=== PATIENT | female | born 1965 | race African-American/Black ===

== ENCOUNTER 2024-04-06 18:24 | Emergency (ER) | payer MEDICAID, OTHER ==
[~2024-04-06] VITALS: Ht 162.6 cm; Wt 80.0 kg
[2024-04-06 18:25] VITALS: TEMP 98.2; O2SAT 99
[2024-04-06] MEDS: KETOROLAC 30MG/ML VIAL IV STA ×2 (19:05→21:30)
[2024-04-06] MEDS: ONDANSETRON HCL 4MG/2ML INJ IV STA ×2 (19:05→22:59)
[2024-04-06] MEDS: SODIUM CHLORIDE 0.9% 1,000 ML IV ONE ×2 (19:15→21:30)
[2024-04-06 20:14] LABS: BASOPHILS % 0.6 % (0.0-2.0); EOSINOPHILS % 0.2 % (0.0-5.0); HEMATOCRIT. 41.9 % (36.0-48.0); HEMOGLOBIN. 13.5 g/dL (12.0-16.0); LYMPHOCYTES % 8.4 % (20.0-50.0); MEAN CORPUSCULAR HEMOGLOBIN 26.8 pg (28.0-32.0); MEAN CORPUSCULAR HGB CONC 32.3 g/dL (31.0-37.0); MEAN PLATELET VOLUME 8.8 fl (7.4-10.4); MONOCYTES % 4.5 % (2.0-8.0); NEUTROPHILS % 86.3 % (40.0-76.0); PLATELET 261 x1000/uL (130-400); RED BLOOD CELL COUNT 5.04 mill/uL (4.2-5.4); RED CELL DISTRIBUTION WIDTH 14.6 % (11.6-14.6)
[2024-04-06 20:21] LABS: CARBON DIOXIDE 28 mEq/L (21-32); CHLORIDE 110 mEq/L (98-107); POTASSIUM 3.5 mEq/L (3.5-5.1); SODIUM 143 mEq/L (136-145)
[2024-04-06 20:22] LABS: CALCIUM 9.7 mg/dL (8.7-10.4)
[2024-04-06 20:26] LABS: CREATININE 0.9 mg/dL (0.6-1.0)
[2024-04-06 20:27] LABS: GLUCOSE 90 mg/dL (70-105); UREA NITROGEN BLOOD 12 mg/dL (9-23)
[2024-04-06 20:29] LABS: ALANINE AMINOTRANSFERASE 19 IU/L (10-49); ALBUMIN 3.9 g/dL (3.2-4.8); ASPARTATE AMINOTRANSFERASE 22 IU/L (<34); BILIRUBIN DIRECT 0.1 mg/dL (<=3.0); BILIRUBIN TOTAL 0.4 mg/dL (0.1-1.0); PROTEIN TOTAL 6.3 g/dL (6.0-8.3)
[2024-04-06 20:33] LABS: TROPONIN I HIGH SENSITIVITY < 4 ng/L (3.0-34)
[2024-04-06] MEDS: LEVOFLOXACIN 500MG PREMIX 100 ML IV ONE (22:59)
[2024-04-06] MEDS: MORPHINE SULFATE 4 MG/ML INJ (FOR IV/IM USE) IV STA (22:59)
[2024-04-07 00:13] VITALS: BP 121/47; PULSE 69; RESP 18; O2SAT 97
== END 2024-04-07 | disposition home or self-care (01) ==
LOC: ER 18:24
DX: R10.9 Unspecified abdominal pain (principal); I10 Essential (primary) hypertension; F41.9 Anxiety disorder, unspecified; Z88.0 Allergy status to penicillin; Z90.710 Acquired absence of both cervix and uterus; Z88.8 Allergy status to other drugs, medicaments and biological substances
CPT/HCPCS: 99285; 74176; 96365; 96361; 96375; 71045; 80076; 80048; 83690; 85025; 84484; 36415; 93005; J1956; J2405; J2270; J7030

== ENCOUNTER 2024-09-20 04:08 | Emergency (ER) | payer MEDICAID ==
[~2024-09-20] VITALS: Ht 172.7 cm; Wt 81.0 kg
[2024-09-20 04:22] VITALS: O2SAT 97
[2024-09-20 04:30] LABS: HEMATOCRIT. 37.8 % (36.0-48.0); HEMOGLOBIN. 12.1 g/dL (12.0-16.0); LYMPHOCYTES % 50.4 % (20.0-50.0); MEAN CORPUSCULAR HEMOGLOBIN 26.2 pg (28.0-32.0); MEAN CORPUSCULAR HGB CONC 31.9 g/dL (31.0-37.0); MEAN CORPUSCULAR VOLUME 81.9 fL (81.0-99.0); MONOCYTES % 5.2 % (2.0-8.0); NEUTROPHILS % 39.4 % (40.0-76.0); PLATELET 281 x1000/uL (130-400); RED BLOOD CELL COUNT 4.62 mill/uL (4.2-5.4); RED CELL DISTRIBUTION WIDTH 14.4 % (11.6-14.6); WHITE BLOOD COUNT 7.1 x1000/uL (4.5-11.0)
[2024-09-20 04:45] LABS: CHLORIDE 109 mEq/L (98-107); SODIUM 146 mEq/L (136-145)
[2024-09-20 04:46] LABS: CARBON DIOXIDE 31 mEq/L (21-32)
[2024-09-20 04:47] LABS: CALCIUM 10.3 mg/dL (8.7-10.4)
[2024-09-20 04:51] LABS: CREATININE 0.8 mg/dL (0.6-1.0); GLUCOSE 100 mg/dL (70-105)
[2024-09-20 04:52] LABS: ETHANOL BLOOD < 10 mg/dL (<10); UREA NITROGEN BLOOD 13 mg/dL (9-23)
[2024-09-20 04:53] LABS: ACETAMINOPHEN < 2 ug/mL (10-30); ALANINE AMINOTRANSFERASE 17 IU/L (10-49); ALBUMIN 4.2 g/dL (3.2-4.8); ASPARTATE AMINOTRANSFERASE 22 IU/L (<34)
[2024-09-20 04:54] LABS: BILIRUBIN DIRECT < 0.1 mg/dL (<=3.0); BILIRUBIN TOTAL 0.2 mg/dL (0.1-1.0); PROTEIN TOTAL 6.5 g/dL (6.0-8.3)
[2024-09-20] MEDS ORDERED: NALO4SPR BOTHNSTRLS (09:25)
[2024-09-20 09:43] VITALS: BP 121/70; PULSE 66; RESP 14; TEMP 36.9; O2SAT 99
== END 2024-09-20 09:45 | disposition home or self-care (01) ==
LOC: ER 04:08
DX: T40.2X1A Poisoning by other opioids, accidental (unintentional), initial encounter (principal); F17.200 Nicotine dependence, unspecified, uncomplicated; F41.9 Anxiety disorder, unspecified; I10 Essential (primary) hypertension; Z98.890 Other specified postprocedural states; Z88.0 Allergy status to penicillin; Z90.710 Acquired absence of both cervix and uterus; Z88.8 Allergy status to other drugs, medicaments and biological substances; Y92.9 Unspecified place or not applicable
CPT/HCPCS: 80076; 80048; 80307; 80329; 80320; 82962; 85025; 36415; 99285; Z7610 ×2; G0480